=== PATIENT | female | born 1975 | race Caucasian/White ===

== ENCOUNTER 2019-05-05 09:07 | Outpatient (CLI) | payer OTHER, SELFPAY ==
--- NOTE | ~2019-05-05 | CT_ITS ---
EXAMINATION: CT chest wo con DATE: 05/05/2019 09:45 INDICATION: Solitary pulmonary nodule shortness of breath TECHNIQUE: Computed tomography (CT) of the chest was performed without intravenous contrast. The dose -length product (DLP) was 384.97 mGy-cm. Automated exposure control and iterative reconstruction tech nique were employed. COMPARISON: 04/29/2019 FINDINGS: No suspicious pulmonary nodule is identified to correlate with the radiographic finding in question. The lungs are free of acute opacities. There is no pleural effusion or pneumothorax. No pat hologically enlarged thoracic lymph nodes are identified. The heart size is normal. There is mild tho racic spondylosis. IMPRESSION: 1. No suspicious pulmonary nodule identified. Reviewed, dictated and finalized at location A. COATER
== END 2019-05-05 09:08 | disposition home or self-care (01) ==
PROVIDERS: PCP Family Medicine; Visit Provider Nurse Practitioner Family
DX: R91.1 Solitary pulmonary nodule (principal)
CPT/HCPCS: 71250

== ENCOUNTER 2019-07-29 17:12 | Outpatient (CLI) | payer OTHER, SELFPAY ==
--- NOTE | ~2019-07-29 | XR_ITS ---
EXAMINATION: XR chest 2V EXAM DATE: 07/29/2019 18:00 INDICATION: Personal history of other specified conditions. Pulmonary nodule on prior chest x-ray. TECHNIQUE: Frontal and lateral projections of the chest obtained and reviewed. Comparison is made to prior examination from 04/29/2019. FINDINGS: The lungs are clear, previously seen small right basilar pulmonary nodule no longer identif ied. There are no pleural effusions. The cardiomediastinal silhouette is within normal limits. The re is no pneumothorax suspected. The bones and soft tissues are unremarkable. IMPRESSION: Unremarkable chest x-ray exam. Reviewed, dictated and finalized at location A.
[2019-07-29 17:47] LABS: Hematocrit 49.3 % (37.0-47.0); Hemoglobin 16.6 g/dL (12.0-15.0); Mean Corpuscular HGB Conc 33.7 g/dl (32-36); Mean Corpuscular Hemoglobin 30.1 pg (26-34); Mean Corpuscular Volume 89.3 fl (80-100); Mean Platelet Volume 8.8 fl (7.4-10.4); Platelet Count Result 371 k/mm3 (150-375); Red Blood Count 5.52 M/mm3 (4.2-5.4); Red Cell Distribution Width 13.5 % (11.5-14.5)
[2019-08-01 11:10] LABS: ANA Cascade Screen Negative (Negative)
== END 2019-07-29 17:13 | disposition home or self-care (01) ==
LOC: ANHIMG 17:19
PROVIDERS: PCP Family Medicine; Visit Provider Physician Assistant Medical
DX: R21 Rash and other nonspecific skin eruption (principal); Z87.898 Personal history of other specified conditions
CPT/HCPCS: 36415; 71046; 85027; 86038

== ENCOUNTER → 2021-01-17 16:34 | Outpatient (CLI) | payer OTHER, SELFPAY ==
--- NOTE | ~2021-01-17 | XR_ITS ---
EXAMINATION: XR foot LT min 3V DATE: 01/17/2021 18:12 INDICATION: Left foot pain. TECHNIQUE: 4 views of left foot were obtained. COMPARISON: None. FINDINGS: Bone alignment is normal. No fracture. There is mild osteoarthritis of first metatarsophala ngeal joint and some of the interphalangeal joints. There are enthesophytes at the posterior and plan tar aspects of calcaneal tuberosity. IMPRESSION: 1. Mild polyarticular osteoarthritis. Reviewed, dictated and finalized at location A.
== END ==
PROVIDERS: PCP Family Medicine; Visit Provider Nurse Practitioner Family
DX: M79.89 Other specified soft tissue disorders (principal); M19.072 Primary osteoarthritis, left ankle and foot
CPT/HCPCS: 73630